=== PATIENT | male | born 1980 | race Caucasian/White ===

== ENCOUNTER 2017-11-05 11:08 | Emergency (ER) | payer OTHER ==
--- NOTE | 2017-11-05 11:49 | XRAY Report ---
Reason: Trauma Procedure Date: 11/05/2017 Accession Number: [id number] / [id number] Procedure: XR - Ankle 3 View RT CPT Code: FULL RESULT: EXAM: RIGHT ANKLE RADIOGRAPHY EXAM DATE: 11/05/2017 11:28 AM. CLINICAL HISTORY: Pain post inversion injury COMPARISON: None. TECHNIQUE: 3 views. FINDINGS: Bones: no fractures or bone lesions. Small plantar calcaneal spur. Prominent spur lateral malleolar tip. Joints: no effusion. No subluxations. The ankle mortise is normally aligned. Soft Tissues: Moderate lateral soft tissue swelling. IMPRESSION: Soft tissue swelling without fracture. RADIA
[2017-11-05] MEDS ORDERED: NAPROXEN 250 MG TABLET PO STA (12:46)
--- NOTE | 2017-11-05 12:49 | ED Physician Documentation ---
PD HPI LOWER EXT INJURY - Stated complaint Stated Complaint: RT ANKLE INJ - Chief complaint Chief Complaint: Ext Problem - History obtained from History obtained from: Patient - History of Present Illness PD HPI LOW EXT INJURY LOCATION: Right, Ankle Type of injury: Fall, Twist Where injury occurred: Other (While hiking) Timing - onset: Today Timing - duration: Other (Just prior to arrival) Timing - details: Constant Severity Comments: Moderate Improved by: Nothing Worsened by: Moving Associated symptoms: Swelling Similar symptoms before: No diagnosis Recently seen: Not recently seen Review of Systems Constitutional: denies: Fever Cardiac: denies: Chest pain / pressure GI: denies: Abdominal Pain Musculoskeletal: reports: Extremity pain, Joint pain Neurologic: denies: Headache PD PAST MEDICAL HISTORY - Past Medical History Past Medical History: No - Past Surgical History Past Surgical History: No - Present Medications Home Medications: Ambulatory Orders Medication Instructions Recorded Confirmed No Known Home Medications [No 11/05/17 11/05/17 Known Home Medications] - Allergies Allergies/Adverse Reactions: Allergies Allergy/AdvReac Type Severity Reaction Status Date / Time No Known Drug Allergies Allergy Verified 11/05/17 11:15 - Social History Does the pt smoke?: No Smoking Status: Never smoker Does the pt drink ETOH?: No Does the pt have substance abuse?: No - Immunizations Immunizations are current?: Yes - POLST Patient has POLST: No PD ED PE NORMAL - General General: Alert and oriented X 3, Well developed/nourished - HEENT HEENT: Atraumatic - Respiratory Respiratory: No respiratory distress - Derm Derm: Normal color - Extremities Extremities: No deformity, Other (The patient's right ankle is tender palpation laterally with mild swelling, there is no contusion or ecchymosis. The patient has a normal dorsalis pedis pulse. There is no crepitus. There is no swelling , deformity or tenderness in the mid or distal foot. The patient has normal sensation light touch. The patient has no tenderness of the proximal fibular head. There is no tenderness in the hip or knee.) - Neuro Neuro: Alert and oriented X 3, Normal speech - Psych Psych: Normal affect Results - Vitals Vitals: Vital Signs - 24 hr 11/05/17 11:13 Temperature 36.8 C Heart Rate 72 Respiratory 15 Rate Blood Pressure 128/85 H O2 Saturation 98 Oxygen O2 Source Room air - Rads (name of study) ankle Radiology: Final report received (IMPRESSION: Soft tissue swelling without fracture) PD MEDICAL DECISION MAKING - ED course ED course: The patient's x-ray shows no evidence of fracture, the patient was placed in a air splint and given crutches. Advised follow-up with primary care and conservative management. I advised that if his symptoms are not improving then he may require further workup and possibly referral to orthopedics. The patient understands and agrees. I discussed warning signs and recommended returning to the emergency department immediately for worsening or any concerns. - Sepsis Event Vital Signs: Vital Signs - 24 hr 11/05/17 11:13 Temperature 36.8 C Heart Rate 72 Respiratory 15 Rate Blood Pressure 128/85 H O2 Saturation 98 Oxygen O2 Source Room air Departure - Departure Disposition: 01 Home, Self Care Clinical Impression: Ankle injury Qualifiers: Encounter type: initial encounter Laterality: right Qualified Code(s): S99.911A - Unspecified injury of right ankle, initial encounter Condition: Good Instructions: ED Sprain Ankle Comments: Please follow-up with your primary care physician for recheck and further evaluation. If your symptoms are not improving he may need further workup and a referral to orthopedic surgery. Please return to the emergency department immediately for worsening symptoms or any concerns.
[2017-11-05 13:12] VITALS: BP 118/78
== END 2017-11-05 13:11 | disposition home or self-care (01) ==
LOC: ED 11:08
DX: S99.911A Unspecified injury of right ankle, initial encounter (principal); X50.9XXA Other and unspecified overexertion or strenuous movements or postures, initial encounter; W19.XXXA Unspecified fall, initial encounter; Y93.02 Activity, running; Y93.01 Activity, walking, marching and hiking
CPT/HCPCS: 73610; 99283; A9270